=== PATIENT | male | born 1960 | race Caucasian/White ===

== ENCOUNTER → 2021-04-25 | Outpatient (CLI) | payer BC ==
[~2021-04-25] MED LIST: AMLODIPINE-BEN1 EAC5 PO; VIAGRA100 MG PO
== END ==
LOC: ECHO 04-21 10:45
DX: R06.00 Dyspnea, unspecified (principal)
CPT/HCPCS: ECHO; 93306

== ENCOUNTER → 2021-06-28 | Outpatient (CLI) | payer BC | LOC: HEART 5 13:07 | DX: R06.00 Dyspnea, unspecified (principal); J98.11 Atelectasis | CPT/HCPCS: 71046; 94060; 94729 ==

== ENCOUNTER → 2021-10-03 | Outpatient (CLI) | payer BC | LOC: KOH-I 13:55 | DX: R42 Dizziness and giddiness (principal); G45.9 Transient cerebral ischemic attack, unspecified; R93.1 Abnormal findings on diagnostic imaging of heart and coronary circulation; I10 Essential (primary) hypertension; I65.23 Occlusion and stenosis of bilateral carotid arteries | CPT/HCPCS: 93880 ==

== ENCOUNTER → 2021-11-01 | Outpatient (CLI) | payer BC | LOC: NM 12:20 | DX: R42 Dizziness and giddiness (principal); R06.09 Other forms of dyspnea; R53.83 Other fatigue; I10 Essential (primary) hypertension | CPT/HCPCS: 78452; A9502 ==

== ENCOUNTER → 2021-11-07 | Outpatient (CLI) | payer BC | LOC: EXRD 14:05 | DX: R91.8 Other nonspecific abnormal finding of lung field (principal); J98.11 Atelectasis | CPT/HCPCS: 71046 ==